=== PATIENT | male | born 1950 | race Caucasian/White ===

== ENCOUNTER 2021-09-30 02:54 | Emergency (ER) | payer MEDICARE ==
[~2021-09-30] VITALS: Ht 165 cm; Wt 55.0 kg
[2021-09-30 03:14] VITALS: BP 216/112
[2021-09-30] MEDS ORDERED: ASPIRIN 325 MG (5 GR) TABLET PO ONE (03:15)
[2021-09-30] MEDS ORDERED: NITROGLYCERIN 0.4 MG SL TABS BTL 25'S SL PRN (03:15)
[2021-09-30 03:26] LABS: BASOPHILS % (AUTO) 1 % (0-10); EOSINOPHILS % (AUTO) 1 % (0-10); HEMATOCRIT 37 % (40-54); HEMOGLOBIN 13.5 g/dL (13.3-17.7); LYMPHOCYTES # (AUTO) 0.4 10^3/uL (1.0-4.0); LYMPHOCYTES % (AUTO) 5 % (12-44); MEAN CORPUSCULAR HEMOGLOBIN 33 pg (25-34); MEAN CORPUSCULAR HGB CONC 37 g/dL (32-36); MEAN CORPUSCULAR VOLUME 89 fL (80-99); MEAN PLATELET VOLUME 9.2 fL (9.0-12.2); MONOCYTES # (AUTO) 1.3 10^3/uL (0.0-1.0); MONOCYTES % (AUTO) 16 % (0-12); NEUTROPHILS # (AUTO) 6.5 10^3/uL (1.8-7.8); NEUTROPHILS % (AUTO) 78 % (42-75); PLATELET COUNT 279 10^3/uL (130-400); WHITE BLOOD COUNT 8.3 10^3/uL (4.3-11.0)
[2021-09-30] MEDS ORDERED: ALPRAZolam 0.25 MG (XANAX) TAB PO ONE (03:30)
--- NOTE | 2021-09-30 03:43 | Diagnostic Imaging Report ---
Indication: Chest pain Portable chest 3:32 AM Heart size and pulmonary vascularity are normal. Lungs are clear. There are no effusions or pneumothoraces. IMPRESSION: Negative chest Dictated by: Dictated on workstation # [id number]
[2021-09-30 03:53] LABS: ATYPICAL LYMPHOCYTES 7 %; BAND NEUTROPHILS 8 %; EOSINOPHILS % (MANUAL) 1 %; LYMPHOCYTES % (MANUAL) 3 %; MONOCYTES % (MANUAL) 2 %; NEUTROPHILS % (MANUAL) 75 %; PLATELET ESTIMATE NORMAL; RBC MORPH NORMAL; REACTIVE LYMPHOCYTES 4 %
[2021-09-30 03:59] LABS: PROTHROMBIN TIME PATIENT 13.9 SEC (12.2-14.7)
[2021-09-30 04:11] LABS: SODIUM 126 MMOL/L (135-145)
[2021-09-30 04:12] LABS: BUN/CREATININE RATIO 20; CARBON DIOXIDE 26 MMOL/L (21-32); CHLORIDE 85 MMOL/L (98-107); CREATININE SERUM 0.92 MG/DL (0.60-1.30); GFR ESTIMATED 89; GLUCOSE 111 MG/DL (70-105); POTASSIUM 3.8 MMOL/L (3.6-5.0)
[2021-09-30 04:13] LABS: ALANINE AMINOTRANSFERASE 10 U/L (0-55); ALKALINE PHOSPHATASE 69 U/L (40-136); BILIRUBIN,TOTAL 0.6 MG/DL (0.1-1.0); CALCIUM 10.2 MG/DL (8.5-10.1); MAGNESIUM 1.3 MG/DL (1.6-2.4); TOTAL PROTEIN 8.1 GM/DL (6.4-8.2)
--- NOTE | 2021-09-30 04:17 | ED Chest Pain ---
General Chief Complaint: General Problems/Pain Stated Complaint: CHEST DISCOMFORT Nursing Triage Note: pt presents with c/o chest tightness, loss of appetite, hot/cold flashes, and pain on his ride side from his abd to his shoulder, as well as increased fatigue. reports symptoms have been intermittent for several days. pt able to ambulate to room. Source: patient Exam Limitations: no limitations History of Present Illness Date Seen by Provider: Sep 30, 2021 Time Seen by Provider: 03:13 Initial Comments This 70-year-old gentleman presents to the emergency room with complaints of chest tightness, loss of appetite, hot/cold flashes, anxiousness, and insomnia for the past couple of days. He reports history of significant hypertensive episodes for which he has pursued cardiology consultation. 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 He received extensive radiation therapy for throat cancer. He takes losartan and clonidine. His last doses were around 1800. He reports taking half doses recently as he feels terrible when he takes a full dose. He has not had any recent cardiac evaluation with stress test or heart cath. He denies any substance abuse. He additionally comments he was started on levothyroxine about a year ago but he has not had his thyroid levels checked since then. He complains of dry mouth. His primary care provider is Michela Friedman at [facility]. Allergies and Home Medications Allergies Coded Allergies: No Known Drug Allergies (Unverified , 09/30/21) Patient Home Medication List Home Medication List Reviewed: Yes Review of Systems Review of Systems Constitutional: see HPI, weight loss EENTM: See HPI Respiratory: No Symptoms Reported Cardiovascular: See HPI Gastrointestinal: No Symptoms Reported Genitourinary: No Symptoms Reported Musculoskeletal: no symptoms reported Skin: no symptoms reported Psychiatric/Neurological: See HPI Endocrine: No Symptoms Reported Hematologic/Lymphatic: No Symptoms Reported Past Zlksset-Ehxptp-Nyhtpp Hx Patient Social History Tobacco Use?: No Substance use?: No Alcohol Use?: No Immunizations Up To Date Influenza Vaccine Up-to-Date: Yes; Up-to-Date Past Medical History Surgery/Hospitalization HX: gallbladder, lymphnodeectomy Surgeries: Yes Gallbladder Respiratory: No Cardiac: Yes Hypertension, Peripheral Vascular (Carotid disease due to radiation exposure from cancer treatment) Reproductive Disorders: No Genitourinary: No Gastrointestinal: Yes Musculoskeletal: No Endocrine: Yes Hypothyroidsim, Diabetes, Non-Insulin dep HEENT: Yes Dysphagia (From radiation cancer treatment) Cancer: Yes (Throat) Psychosocial: No Integumentary: No Physical Exam Vital Signs Vital Signs - First Documented 09/30/21 03:14 Temp 37.3 Pulse 114 Resp 24 B/P (MAP) 216/112 (146) Pulse Ox 97 O2 Delivery Room Air Capillary Refill : Height, Weight, BMI Height: '" Weight: lbs. oz. kg; 20.00 BMI Method: General Appearance: WD/WN, Moderate Distress HEENT: PERRL/EOMI, Normal ENT Inspection, Other (Dry oropharynx) Neck: Normal Inspection; No JVD Respiratory: Chest Non Tender, Lungs Clear, Normal Breath Sounds, No Accessory Muscle Use Cardiovascular: No Edema, No Murmur, Tachycardia Gastrointestinal: Non Tender, Soft Extremity: Normal Inspection, No Pedal Edema Neurologic/Psychiatric: Alert, Oriented x3, No Motor/Sensory Deficits, gravel weigher II- XII Norm as Tested, Other (Anxious) Skin: Normal Color, Warm/Dry Progress/Results/Core Measures Results/Orders Lab Results Laboratory Tests Test 09/30/21 03:13 09/30/21 05:28 Range/Units White Blood Count 8.3 4.3-11.0 10^3/uL Red Blood Count 4.14 L 4.30-5.52 10^6/uL Hemoglobin 13.5 13.3-17.7 g/dL Hematocrit 37 L 40-54 % Mean Corpuscular Volume 89 80-99 fL Mean Corpuscular Hemoglobin 33 25-34 pg Mean Corpuscular Hemoglobin Concent 37 H 32-36 g/dL Red Cell Distribution Width 11.8 10.0-14.5 % Platelet Count 279 130-400 10^3/uL Mean Platelet Volume 9.2 9.0-12.2 fL Immature Granulocyte % (Auto) 0 % Neutrophils (%) (Auto) 78 H 42-75 % Lymphocytes (%) (Auto) 5 L 12-44 % Monocytes (%) (Auto) 16 H 0-12 % Eosinophils (%) (Auto) 1 0-10 % Basophils (%) (Auto) 1 0-10 % Neutrophils # (Auto) 6.5 1.8-7.8 10^3/uL Lymphocytes # (Auto) 0.4 L 1.0-4.0 10^3/uL Monocytes # (Auto) 1.3 H 0.0-1.0 10^3/uL Eosinophils # (Auto) 0.0 0.0-0.3 10^3/uL Basophils # (Auto) 0.0 0.0-0.1 10^3/uL Immature Granulocyte # (Auto) 0.0 0.0-0.1 10^3/uL Neutrophils % (Manual) 75 % Lymphocytes % (Manual) 3 % Monocytes % (Manual) 2 % Eosinophils % (Manual) 1 % Band Neutrophils 8 % Atypical Lymphocytes 7 % Reactive Lymphocytes 4 % Platelet Estimate NORMAL Blood Morphology Comment NORMAL Prothrombin Time 13.9 12.2-14.7 SEC INR Comment 1.0 0.8-1.4 Activated Partial Thromboplast Time 33 24-35 SEC Sodium Level 126 L 135-145 MMOL/L Potassium Level 3.8 3.6-5.0 MMOL/L Chloride Level 85 L 98-107 MMOL/L Carbon Dioxide Level 26 21-32 MMOL/L Anion Gap 15 H 5-14 MMOL/L Blood Urea Nitrogen 18 7-18 MG/DL Creatinine 0.92 0.60-1.30 MG/DL Estimat Glomerular Filtration Rate 89 BUN/Creatinine Ratio 20 Glucose Level 111 H 70-105 MG/DL Calcium Level 10.2 H 8.5-10.1 MG/DL Corrected Calcium 8.5-10.1 MG/DL Magnesium Level 1.3 L 1.6-2.4 MG/DL Total Bilirubin 0.6 0.1-1.0 MG/DL Aspartate Amino Transf (AST/SGOT) 19 5-34 U/L Alanine Aminotransferase (ALT/SGPT) 10 0-55 U/L Alkaline Phosphatase 69 40-136 U/L Myoglobin 57.1 10.0-92.0 NG/ML Troponin I < 0.30 < 0.30 <0.30 NG/ML C-Reactive Protein 4.52 H <0.50 MG/DL Pro-B-Type Natriuretic Peptide 444.0 H <75.0 PG/ML Total Protein 8.1 6.4-8.2 GM/DL Albumin 5.0 H 3.2-4.5 GM/DL My Orders Orders - AVINASH HARLEY MD Cbc With Automated Diff (09/30/21 03:13) Magnesium (09/30/21 03:13) Chest 1 View Ap/Pa Only (09/30/21 03:13) Ekg Tracing (09/30/21 03:13) Comprehensive Metabolic Panel (09/30/21 03:13) Myoglobin Serum (09/30/21 03:13) Protime With Inr (09/30/21 03:13) Partial Thromboplastin Time (09/30/21 03:13) O2 (09/30/21 03:13) Monitor-Rhythm Ecg Trace Only (09/30/21 03:13) Lipid Panel (10/01/21 06:00) Ed Iv/Invasive Line Start (09/30/21 03:13) Troponin I Fs (09/30/21 03:13) Nitroglycerin 0.4 Mg Btl 25's (Nitrostat (09/30/21 03:15) Aspirin Tablet (Aspirin Tablet) (09/30/21 03:15) Probnp Fs (09/30/21 03:16) Thyroid Stimulating Hormone (09/30/21 03:16) Free T4 (Free Thyroxine) (09/30/21 03:16) Alprazolam Tablet (Xanax Tablet) (09/30/21 03:30) Crp Fs (09/30/21 03:35) Manual Differential (09/30/21 03:13) Ns Iv 1000 Ml (Sodium Chloride 0.9%) (09/30/21 04:30) Magnesium 1 Gm/100 Ml Ivpb (Magnesium Leon (09/30/21 04:30) Magnesium 1 Gm/100 Ml Ivpb (Magnesium Leon (09/30/21 04:21) Troponin I Fs (09/30/21 05:15) Magnesium Oxide Tablet (Mag Ox Tablet) (09/30/21 05:30) Medications Given in ED Current Medications Medications Dose Ordered Sig/Moy Route Start Time Stop Time Status Last Admin Dose Admin Alprazolam 0.25 mg ONCE ONCE PO 09/30/21 03:30 09/30/21 03:31 DC 09/30/21 03:27 0.25 MG Aspirin 325 mg ONCE ONCE PO 09/30/21 03:15 09/30/21 03:16 DC 09/30/21 03:27 325 MG Magnesium Oxide 400 mg ONCE ONCE PO 09/30/21 05:30 09/30/21 05:31 DC 09/30/21 05:40 400 MG Magnesium Sulfate/ Dextrose 100 ml @ 100 mls/hr ONCE ONCE IV 09/30/21 04:30 09/30/21 05:29 DC 09/30/21 04:23 100 MLS/HR Nitroglycerin 0.4 mg UD PRN SL 09/30/21 03:15 09/30/21 03:27 0.4 MG Sodium Chloride 1,000 ml @ 0 mls/hr Q0M ONCE IV 09/30/21 04:30 09/30/21 04:31 DC 09/30/21 04:23 0 MLS/HR Vital Signs/I&O 09/30/21 09/30/21 09/30/21 09/30/21 03:14 03:20 03:45 04:09 Temp 37.3 Pulse 114 106 100 Resp 24 18 B/P (MAP) 216/112 (146) 104/63 106/65 Pulse Ox 97 98 93 O2 Delivery Room Air Room Air Room Air 09/30/21 09/30/21 04:48 05:36 Pulse 93 87 Resp 18 B/P (MAP) 136/75 126/67 Pulse Ox 96 96 O2 Delivery Room Air Blood Pressure Mean: 79 Progress Progress Note #1: Time: 04:31 Progress Note Patient received nitroglycerin x1, Xanax 0.25 mg orally, and aspirin. He abruptly dropped his systolic blood pressure to 80 after the nitroglycerin. Progress Note #2: Time: 06:38 Progress Note Repeat troponin was negative. Blood pressure was controlled. Patient was not experiencing any chest pain. See discharge instructions for further discussion. Initial ECG Impression Date: Sep 30, 2021 Initial ECG Impression Time: 03:14 Initial ECG Rate: 110 Initial ECG Rhythm: S.Tach Comment Sinus tachycardia with no ST elevation or depression. No abnormal intervals or axis deviation. Diagnostic Imaging Diagonstic Imaging: Xray Plain Films/CT/US/NM/MRI: chest Comments Chest x-ray viewed by me and report reviewed. See report below: NAME: BAUTISTA RIVAS [employer] REC#: [id number] PT STATUS: REG ER : 1950 PHYSICIAN: AVINASH HARLEY MD ADMIT DATE: 09/30/21/ER FS Signed Date of Exam:09/30/21 CHEST 1 VIEW AP/PA ONLY Indication: Chest pain Portable chest 3:32 AM Heart size and pulmonary vascularity are normal. Lungs are clear. There are no effusions or pneumothoraces. IMPRESSION: Negative chest Dictated by: Dictated on workstation # [id number] Dict: 09/30/21340 Trans: 09/30/21340 TCB [id number] Interpreted by: NITIN CEJA MD Electronically signed by: NITIN CEJA MD 09/30/21340 Departure Impression Primary Impression: Hypertensive urgency Additional Impressions: Chest pain Qualified Codes: R07.9 - Chest pain, unspecified Anxiety Hypomagnesemia Hyponatremia Thyroid dysfunction Unintended weight loss Disposition: HOME, SELF-CARE Condition: Improved Departure-Patient Inst. Referrals: NO,LOCAL PHYSICIAN (PCP/Family) Primary Care Physician Patient Instructions: Chest Pain Add. Discharge Instructions: Follow-up with your primary care provider soon as possible. They should follow- up on your pending thyroid labs to ensure your thyroid is regulated properly. If your unintended weight loss is not explained by thyroid dysfunction or any other identifiable cause, this should be explored further. This may include revisiting your oncologist for cancer surveillance. Try to eat a well-balanced diet. If necessary, you may use supplements such as Ensure to help you achieve proper nutrition. Call with questions or concerns, and return to the ER if you have worsening symptoms. All discharge instructions reviewed with patient and/or family. Voiced understanding. Copy Copies To 1: [facility]/AVINASH WILL MD Sep 30, 2021 04:17
[2021-09-30] MEDS ORDERED: MAGNESIUM 1 GM/100 ML IVPB 100 ML IV ONE ×2 (04:21→04:30)
[2021-09-30] MEDS ORDERED: NS IV 1000 ML 1,000 ML IV ONE (04:30)
[2021-09-30] MEDS ORDERED: MAGNESIUM OXIDE (MAG-OX)400 MG TAB PO ONE (05:30)
[2021-09-30 15:26] LABS: FREE T4 (FREE THYROXINE) 1.29 NG/DL (0.70-1.48)
== END 2021-09-30 06:45 | disposition home or self-care (01) ==
LOC: ER FS 03:02
DX: I16.0 Hypertensive urgency (principal); F41.9 Anxiety disorder, unspecified; E87.1 Hypo-osmolality and hyponatremia; E83.42 Hypomagnesemia; E07.9 Disorder of thyroid, unspecified; R63.4 Abnormal weight loss; R00.0 Tachycardia, unspecified; Z79.899 Other long term (current) drug therapy
CPT/HCPCS: 36415; 71045; 80053; 83735; 83874; 83880; 84439; 84443; 84484; 85007; 85027; 85610; 85730; 86141; 93005; 93041

== ENCOUNTER 2021-10-18 11:01 | Emergency (ER) | payer MEDICARE ==
[~2021-10-18] VITALS: Ht 167.7 cm; Wt 54.4 kg
--- NOTE | 2021-10-18 11:26 | Diagnostic Imaging Report ---
EXAMINATION: Chest 1 view HISTORY: Chest pain COMPARISON: 09/30/2021 FINDINGS: Heart size and pulmonary vasculature are normal. The lungs are clear without consolidation, pleural effusion, or pneumothorax. Degenerative changes of the thoracic spine. Osseous structures are otherwise intact. IMPRESSION: 1. No acute radiographic abnormality in the chest. Dictated by: Dictated on workstation # [id number]
[2021-10-18] MEDS ORDERED: ALPRAZolam 0.25 MG (XANAX) TAB PO ONE (11:45)
[2021-10-18 11:58] LABS: CARBON DIOXIDE 28 MMOL/L (21-32)
[2021-10-18 11:59] LABS: ALANINE AMINOTRANSFERASE 18 U/L (0-55); ALBUMIN 4.8 GM/DL (3.2-4.5); ALKALINE PHOSPHATASE 78 U/L (40-136); BILIRUBIN,TOTAL 0.7 MG/DL (0.1-1.0); BUN/CREATININE RATIO 14; CALCIUM 9.8 MG/DL (8.5-10.1); CREATININE SERUM 1.02 MG/DL (0.60-1.30); GFR ESTIMATED 79; GLUCOSE 193 MG/DL (70-105); TOTAL PROTEIN 8.2 GM/DL (6.4-8.2)
[2021-10-18 12:30] LABS: CHLORIDE 88 MMOL/L (98-107); SODIUM 130 MMOL/L (135-145)
[2021-10-18] MEDS ORDERED: NS 100 ML (IVPB) BAG IV ONE (12:45)
[2021-10-18] MEDS ORDERED: HOLD METFORMIN - RECEIVED CONTRAST 20 ML VIAL IV SCH (12:45)
[2021-10-18] MEDS ORDERED: FUROSEMIDE 40 MG/4 ML INJ (LASIX) IVP ONE (12:45)
[2021-10-18] MEDS ORDERED: IOHEXOL 350 MG/ML 100 ML (OMNIPAQUE 350) VIAL IV ONE (12:45)
--- NOTE | 2021-10-18 13:25 | ED Cardiac General ---
History of Present Illness General Chief Complaint: Chest Pain Stated Complaint: SOB; CHEST PAIN Nursing Triage Note: PT AMBULATE TO ROOM FS01 WITH C/O CHEST PRESSURE SINCE 10/03/21. PT REPORTS BEING SEEN IN THIS ED AND DISCHARGED ON 10/03/21 FOR SAME C/O. PT REPORTS HIS PCP CANNOT GET HIM IN UNTIL THE OF NEXT MONTH. Source: patient Exam Limitations: no limitations History of Present Illness Date Seen by Provider: Oct 18, 2021 Time Seen by Provider: 11:15 Initial Comments Patient is a 70-year-old male who is approximately 2 weeks post COVID-positive who presents with intermittent chest tightness with shortness of breath over the past month with increased fatigue.. Patient denies chest pain or exertional chest tightness but states he noticed symptoms more during the nighttime. He has been evaluated in this emergency department for the same 2 weeks ago and is awaiting follow-up appointment with his PCP. Reports decreased appetite with 40 pound weight loss in the past 12 months and anxiety. Patient denies fever, chills, nausea vomiting or sweats. He reports nonproductive cough. Reports abdominal pain with some constipation. Generalized fatigue which he attributes to COVID. Denies leg pain or swelling. No other acute symptoms or complaints. Timing/Duration: other Severity: mild Location: other Activities at Onset: other Prior CP/Workup: other Modifying Factors: improves with other ASA po SIGN HANGER: No Associated Systoms: Other Allergies and Home Medications Allergies Coded Allergies: No Known Drug Allergies (Unverified , 09/30/21) Patient Home Medication List Home Medication List Reviewed: Yes Review of Systems Review of Systems Constitutional: see HPI EENTM: See HPI Respiratory: See HPI Cardiovascular: See HPI Gastrointestinal: See HPI Genitourinary: See HPI Musculoskeletal: see HPI Skin: see HPI Psychiatric/Neurological: See HPI Endocrine: See HPI Hematologic/Lymphatic: See HPI All Other Systems Reviewed Negative Unless Noted: No Past Whvzajt-Accpln-Wwfurs Hx Patient Social History Tobacco Use?: No Smoking Status: Never a Smoker Smokeless Tobacco Frequency: Never a User Use of E-Cig and/or Vaping dev: No Use of E-Cig and/or Vaping [place]: Never a User Substance use?: No Alcohol Use?: Yes Alcohol Frequency: Rarely Pt feels they are or have been: No Immunizations Up To Date First/Initial COVID19 Vaccinat: X Second COVID19 Vaccination Micah: X COVID19 Vaccine [id number] Armor Crewman: JARRELL Past Medical History Surgery/Hospitalization HX: gallbladder, lymphnodeectomy Surgeries: Yes Gallbladder Respiratory: No Cardiac: Yes Hypertension, Peripheral Vascular Reproductive Disorders: No Genitourinary: No Gastrointestinal: Yes Musculoskeletal: No Endocrine: Yes Hypothyroidsim, Diabetes, Non-Insulin dep HEENT: Yes Dysphagia Cancer: Yes (Throat) Psychosocial: No Integumentary: No Physical Exam Vital Signs Vital Signs - First Documented 10/18/21 11:02 Temp 36.4 Pulse 97 Resp 15 B/P (MAP) 238/105 (149) O2 Delivery Room Air Capillary Refill : Less Than 3 Seconds Height, Weight, BMI Height: '" Weight: lbs. oz. kg; 19.00 BMI Method: General Appearance: No Apparent Distress, WD/WN HEENT: PERRL/EOMI, Normal ENT Inspection, Pharynx Normal, Moist Mucous Membranes Neck: Full Range of Motion, Non Tender Respiratory: Decreased Breath Sounds Cardiovascular: Regular Rate, Rhythm, No Murmur, Normal Peripheral Pulses Gastrointestinal: Normal Bowel Sounds, Non Tender, Soft Neurologic/Psychiatric: Alert, Oriented x3, Normal Mood/Affect, client service supervisor II-XII Norm as Tested Skin: Normal Color Focused Exam Sepsis Stage: Ruled Out Progress/Results/Core Measures Results/Orders Lab Results Laboratory Tests Test 10/18/21 11:10 Range/Units White Blood Count 9.4 4.3-11.0 10^3/uL Red Blood Count 4.60 4.30-5.52 10^6/uL Hemoglobin 14.7 13.3-17.7 g/dL Hematocrit 41 40-54 % Mean Corpuscular Volume 90 80-99 fL Mean Corpuscular Hemoglobin 32 25-34 pg Mean Corpuscular Hemoglobin Concent 36 32-36 g/dL Red Cell Distribution Width 12.0 10.0-14.5 % Platelet Count 427 H 130-400 10^3/uL Mean Platelet Volume 9.2 9.0-12.2 fL Immature Granulocyte % (Auto) 0 % Neutrophils (%) (Auto) 86 H 42-75 % Lymphocytes (%) (Auto) 5 L 12-44 % Monocytes (%) (Auto) 7 0-12 % Eosinophils (%) (Auto) 1 0-10 % Basophils (%) (Auto) 1 0-10 % Neutrophils # (Auto) 8.1 H 1.8-7.8 10^3/uL Lymphocytes # (Auto) 0.5 L 1.0-4.0 10^3/uL Monocytes # (Auto) 0.6 0.0-1.0 10^3/uL Eosinophils # (Auto) 0.1 0.0-0.3 10^3/uL Basophils # (Auto) 0.1 0.0-0.1 10^3/uL Immature Granulocyte # (Auto) 0.0 0.0-0.1 10^3/uL Neutrophils % (Manual) 74 % Lymphocytes % (Manual) 5 % Monocytes % (Manual) 10 % Eosinophils % (Manual) 0 % Basophils % (Manual) 1 % Band Neutrophils 8 % Atypical Lymphocytes 2 % Platelet Estimate INCREASED Blood Morphology Comment NORMAL Sodium Level 130 L 135-145 MMOL/L Potassium Level 4.0 3.6-5.0 MMOL/L Chloride Level 88 L 98-107 MMOL/L Carbon Dioxide Level 28 21-32 MMOL/L Anion Gap 14 5-14 MMOL/L Blood Urea Nitrogen 14 7-18 MG/DL Creatinine 1.02 0.60-1.30 MG/DL Estimat Glomerular Filtration Rate 79 BUN/Creatinine Ratio 14 Glucose Level 193 H 70-105 MG/DL Calcium Level 9.8 8.5-10.1 MG/DL Corrected Calcium 8.5-10.1 MG/DL Total Bilirubin 0.7 0.1-1.0 MG/DL Aspartate Amino Transf (AST/SGOT) 18 5-34 U/L Alanine Aminotransferase (ALT/SGPT) 18 0-55 U/L Alkaline Phosphatase 78 40-136 U/L Troponin I < 0.30 <0.30 NG/ML Pro-B-Type Natriuretic Peptide 480.5 H <125.0 PG/ML Total Protein 8.2 6.4-8.2 GM/DL Albumin 4.8 H 3.2-4.5 GM/DL My Orders Orders - DANIELA REBOLLAR DO Chest 1 View Ap/Pa Only (10/18/21 11:13) Troponin I Fs (10/18/21 11:13) Comprehensive Metabolic Panel (10/18/21 11:13) Probnp Fs (10/18/21 11:13) Ekg Tracing (10/18/21 11:13) Alprazolam Tablet (Xanax Tablet) (10/18/21 11:45) Furosemide Injection (Lasix Injection) (10/18/21 12:45) Ct [place] Chest/Noang Abd-Pelv W (10/18/21 12:32) Iohexol Injection (Omnipaque 350 Mg/Ml 1 (10/18/21 12:45) Received Contrast (Hold Metformin- Contr (10/18/21 12:45) Ns (Ivpb) (Sodium Chloride 0.9% Ivpb Bag (10/18/21 12:45) Cbc With Automated Diff (10/18/21 13:27) Manual Differential (10/18/21 11:10) Medications Given in ED Current Medications Medications Dose Ordered Sig/Moy Route Start Time Stop Time Status Last Admin Dose Admin Alprazolam 0.25 mg ONCE ONCE PO 10/18/21 11:45 10/18/21 11:46 DC 10/18/21 11:44 0.25 MG Furosemide 20 mg ONCE ONCE IVP 10/18/21 12:45 10/18/21 12:46 DC 10/18/21 13:50 20 MG Vital Signs/I&O 10/18/21 11:02 Temp 36.4 Pulse 97 Resp 15 B/P (MAP) 238/105 (149) O2 Delivery Room Air Blood Pressure Mean: 149 Departure Communication (Admissions) CT chest: Groundglass appearing and lung waggoner, no PE, CT abdomen pelvis: No acute process per radiology report Patient with multiple subacute and chronic symptoms and post in COVID setting. Patient sodium 138 likely contributing to fatigue. I will hold the patient's losartan and have him follow-up with his PCP next week for reexamination. Patient does have clonidine which he can use on a daily basis on a as needed. CT findings are consistent with COVID without discrete lobar infiltrate. Will place on Z-Jose Angel for atypical pneumonia coverage. He does have an albuterol inhaler to use. Patient does have 40 pound weight loss over the past 3 to 4 months. He is following up with his primary care doctor who can address this issue and his ongoing anxiety. Patient does not currently meet any criteria for acute hospital. He will be discharged home with instructions to continue therapeutic and supportive care with PCP follow-up. Return precautions reviewed. Patient verbalizes understanding agreement discharge instructions prior to departure. Impression Primary Impression: Dyspnea Additional Impressions: Chest tightness Fatigue COVID Hyponatremia Disposition: HOME, SELF-CARE Condition: Stable Departure-Patient Inst. Decision time for Depature: 14:17 Referrals: JAMES BAIRD MD (PCP) Primary Care Physician Patient Instructions: COVID-19 Overview Add. Discharge Instructions: You were evaluated in the emergency department for chest tightness, shortness of breath fatigue and abdominal discomfort. Lab and imaging studies were performed. There is residual evidence of COVID on your CT chest. You will need to hold metformin for the next 2 days due to the use of CT contrast. Please fill antibiotics and take as directed and continue home albuterol use. You were found to have a low sodium level of 130. He is discontinue losartan as this may be contributing to this and follow-up with your PCP next week for repeat lab testing and further blood pressure management. You may use daily clonidine to address blood pressure in the meantime. If you develop any new or worsening symptoms, return to the emergency department. All discharge instructions reviewed with patient and/or family. Voiced understanding. Scripts Azithromycin (Zithromax) 250 Mg Tablet 250 MG PO UD, #6 TAB TAKE 2 TABLETS TODAY, THEN TAKE 1 TABLET DAILY FOR 4 MORE DAYS Prov: DANIELA REBOLLAR DO 10/18/21 DANIELA REBOLLAR DO Oct 18, 2021 13:25
[2021-10-18 13:35] LABS: BASOPHILS # (AUTO) 0.1 10^3/uL (0.0-0.1); BASOPHILS % (AUTO) 1 % (0-10); EOSINOPHILS # (AUTO) 0.1 10^3/uL (0.0-0.3); EOSINOPHILS % (AUTO) 1 % (0-10); HEMATOCRIT 41 % (40-54); HEMOGLOBIN 14.7 g/dL (13.3-17.7); LYMPHOCYTES # (AUTO) 0.5 10^3/uL (1.0-4.0); LYMPHOCYTES % (AUTO) 5 % (12-44); MEAN CORPUSCULAR HEMOGLOBIN 32 pg (25-34); MEAN CORPUSCULAR HGB CONC 36 g/dL (32-36); MEAN CORPUSCULAR VOLUME 90 fL (80-99); MEAN PLATELET VOLUME 9.2 fL (9.0-12.2); MONOCYTES # (AUTO) 0.6 10^3/uL (0.0-1.0); MONOCYTES % (AUTO) 7 % (0-12); NEUTROPHILS # (AUTO) 8.1 10^3/uL (1.8-7.8); NEUTROPHILS % (AUTO) 86 % (42-75); PLATELET COUNT 427 10^3/uL (130-400); WHITE BLOOD COUNT 9.4 10^3/uL (4.3-11.0)
--- NOTE | 2021-10-18 13:37 | Diagnostic Imaging Report ---
EXAMINATION: CT angiography of the chest; CT of the abdomen and pelvis. TECHNIQUE: Contrast-enhanced thin section helical images were obtained through the chest, abdomen and pelvis with intravenous contrast timed for the optimal opacification of the arterial structures of the chest per CTA protocol. Post-processing, reconstructions, and interpretation of angiographic images of the vessels were performed. 3D MIP reconstructions were performed and reviewed. All CT scans use one or more of the following dose optimizing techniques: Automated exposure control, MA and/or KvP adjustment based on a patient size and exam type, or iterative reconstruction. HISTORY: CP, concern for PE. COMPARISON: None available. FINDINGS: Vascular: No filling defects within the pulmonary arteries. Calcification of the aorta and coronary vessels. Thyroid: The thyroid is normal. Mediastinum: Heart size is normal without significant pericardial effusion. No suspicious lymphadenopathy. Lungs and airways: The lungs are clear without consolidation, pleural effusion, or pneumothorax. There is scarring within the lung apices. Patchy ground-glass opacities are seen within the lungs. No pleural effusion or pneumothorax. Mucus plugging within the trachea. Solid organs: The liver is normal without focal lesion. The gallbladder is surgically absent. There is no biliary ductal dilation. Pancreas is normal. Spleen is normal. Adrenal glands are normal. The kidneys are normal without hydronephrosis. Bowel: The stomach and small bowel are normal without obstruction. Colon is unremarkable. No findings of acute appendicitis. Peritoneum: There is no intraperitoneal free fluid or free air. No suspicious lymphadenopathy. Vasculature: Calcification of the aorta without aneurysm. Musculoskeletal: Degenerative changes of the spine without suspicious osseous lesion or compression fracture. Pelvis: The prostate gland is normal. The urinary bladder is normal. IMPRESSION: 1. No findings of pulmonary embolus. 2. Patchy ground-glass opacities throughout the lungs, which can be seen with pulmonary edema or atypical infection. 3. No acute abnormality in the abdomen or pelvis. Dictated by: Dictated on workstation # [id number]
[2021-10-18 13:56] LABS: BAND NEUTROPHILS 8 %; LYMPHOCYTES % (MANUAL) 5 %; MONOCYTES % (MANUAL) 10 %; NEUTROPHILS % (MANUAL) 74 %
[2021-10-18 13:57] LABS: ATYPICAL LYMPHOCYTES 2 %; BASOPHILS % (MANUAL) 1 %; EOSINOPHILS % (MANUAL) 0 %; PLATELET ESTIMATE INCREASED; RBC MORPH NORMAL
[2021-10-18] MEDS ORDERED: AZIT250T PO (14:21)
[2021-10-18 14:27] VITALS: BP 149/85
== END 2021-10-18 14:27 | disposition home or self-care (01) ==
LOC: EDUNIT# 11:01 → ER FS 11:02
DX: U07.1 COVID-19 (principal); E87.1 Hypo-osmolality and hyponatremia; Z73.0 Burn-out
CPT/HCPCS: 36415; 71045; 71275; 74177; 80053; 83880; 84484; 85007; 85027; 93005; Q9967

== ENCOUNTER → 2022-01-17 | Outpatient (CLI) | payer MEDICARE ==
[~2022-01-17] MED LIST: AZIT250T PO
== END ==
LOC: CARDFS 13:02
PROVIDERS: ATTEND Internal Medicine Cardiovascular Disease
DX: I34.0 Nonrheumatic mitral (valve) insufficiency (principal)
CPT/HCPCS: 93306

== ENCOUNTER 2022-01-18 06:33 | Outpatient (CLI) | payer MEDICARE ==
[~2022-01-18] VITALS: Ht 167.6 cm; Wt 51.7 kg
[2022-01-23] MEDS ORDERED: OMEP40CA6 PO (13:21)
[2022-01-23] MEDS ORDERED: LOSA25TA41 PO (13:21)
[2022-01-23] MEDS ORDERED: CYAN1TAB18 PO (13:21)
[2022-01-23] MEDS ORDERED: LYSI500T10 PO (13:21)
[2022-01-23] MEDS ORDERED: ROSU20TA32 PO (13:21)
[2022-01-23] MEDS ORDERED: CLN.1T PO (13:21)
[2022-01-23] MEDS ORDERED: METF-397 PO (13:21)
== END 2022-01-23 13:29 | disposition home or self-care (01) ==
LOC: PREOP 06:33
PROVIDERS: ATTEND Surgery
DX: Z01.818 Encounter for other preprocedural examination (principal)

== ENCOUNTER 2022-01-26 07:12 | Day surgery (SDC) | payer MEDICARE ==
[2022-01-26] VITALS (7 sets, daily range): BP systolic 92–227; BP diastolic 54–133
[~2022-01-26] VITALS: Ht 167.6 cm; Wt 51.7 kg
[~2022-01-26 07:12] MED LIST changes: +CLN.1T PO; +CYAN1TAB18 PO; +LOSA25TA41 PO; +LYSI500T10 PO; +METF-397 PO; +OMEP40CA6 PO; +ROSU20TA32 PO
[2022-01-26] MEDS ORDERED: LACTATED RINGERS 1,000 ML IV STA (07:15)
[2022-01-26] MEDS ORDERED: HURRICAINE EXT TUBE (BENZOCAINE) XX PRN (07:15)
--- NOTE | 2022-01-26 07:57 | Progress Note-Pre Operative ---
Pre-Operative Progress Note Date of Available H&P: Jan 16, 2022 Date H&P Reviewed: Jan 26, 2022 Time H&P Reviewed: 07:57 History & Physical: H&P Reviewed, Patient Examed, No changes noted Pre-Operative Diagnosis: dysphagia, hx tongue ca ABELARDO MRAIE DO Jan 26, 2022 07:57
--- NOTE | 2022-01-26 08:43 | Progress Note-Post Operative ---
Post-Operative Progess Note Surgeon (s)/Assembling Fabricator (s) Surgeon ABELARDO MARIE DO Assembling Fabricator: NA Pre-Operative Diagnosis dysphagia, hx tongue ca Post-Operative Diagnosis dysphagia Procedure & Operative Findings Date of Procedure 01/26/22 Procedure Performed/Findings EGD with pediatric scope due to rigidity of esophagus Anesthesia Type per family practice doctor Estimated Blood Loss Estimated blood loss (mL): None Specimens/Packing Specimens Removed No biopsies taken ABELARDO MARIE DO Jan 26, 2022 08:43
--- NOTE | 2022-01-26 08:45 | Discharge Inst-Simple/Standard ---
Discharge Inst-Standard Reconcile Patient Problems Problems Reviewed?: Yes Patient Instructions/Follow Up Plan of Care/Instructions/FU: f/u with Dr. Nelson in 2 weeks Activity as Tolerated: Yes Discharge Diet: Regular Diet ABELARDO NELSON DO Jan 26, 2022 08:45
--- NOTE | 2022-01-26 08:48 | Anesthesia-General Post-Op ---
MAC Patient Condition Mental Status/LOC: Same as Preop Cardiovascular: Satisfactory Nausea/Vomiting: Absent Respiratory: Satisfactory Pain: Controlled Complications: Absent Post Op Complications Complications None Follow Up Care/Instructions Patient Instructions None needed. Anesthesiology Discharge Order Discharge Order Patient is doing well, no complaints, stable vital signs, no apparent adverse anesthesia problems. No complications reported per nursing. RASTA RAYMUNDO CRNA Jan 26, 2022 08:48
--- NOTE | 2022-01-27 03:44 | OPERATIVE REPORT ---
DATE OF SERVICE: 01/26/2022 PREOPERATIVE DIAGNOSES: Dysphagia, history of tongue cancer. POSTOPERATIVE DIAGNOSES: Dysphagia, history of tongue cancer. PROCEDURE: EGD. SURGEON: Abelardo Nelson DO. ANESTHESIA: Per HEALTH PROMOTION EDUCATOR. ESTIMATED BLOOD LOSS: Scant. COMPLICATIONS: None. INDICATIONS: The patient is a 71-year-old male with history of tongue cancer. He underwent chemoradiation. He has been having dysphagia symptoms as well. He understands risks and benefits of procedure and wishes to proceed. Consent was signed in the chart. DESCRIPTION OF PROCEDURE: The patient was taken to the endoscopy suite, placed in left lateral recumbent position. Timeout was performed. Gastroscope was inserted in the mouth, down to the esophagus, but tissue is fairly rigid and small submucosal tear was created due to the rigidity and of the oropharynx. We decided to switch to a pediatric scope, which we were able to place in the mouth and inserted down the esophagus without any difficulty. It was placed down into the esophagus, stomach and into the duodenum without difficulty. There were no polyps, masses or ulcerations within the duodenum. Scope was slowly retracted back to stomach where it was further insufflated. No polyps, masses or ulcerations. Scope was retroflexed noting no other pathology. Scope was returned to its normal position, slowly withdrawn to the distal esophagus all the way out, noting no other pathology. RECOMMENDATIONS: I feel that his dysphagia symptoms are likely from radiation. Would get an esophagram to further evaluate. Would also have evaluation with speech therapy. Further recommendations pending those results. Job ID: [id number] DocumentID: [id number] Dictated Date: 01/26/2022 23:54:11 Sourcing Engineer Date: 01/27/2022 03:43:43 Dictated By: ABELARDO NELSON DO
== END 2022-01-26 09:30 | disposition home or self-care (01) ==
LOC: SDC 07:12
PROVIDERS: ATTEND Surgery
DX: R13.10 Dysphagia, unspecified (principal); Z85.810 Personal history of malignant neoplasm of tongue; Z92.21 Personal history of antineoplastic chemotherapy; Z87.891 Personal history of nicotine dependence
CPT/HCPCS: 82947

== ENCOUNTER → 2022-02-02 | Outpatient (CLI) | payer MEDICARE ==
[~2022-02-02] VITALS: Ht 167 cm; Wt 52.0 kg
[~2022-02-02] MED LIST changes: +REGADENOSON 0.4 MG/5 ML SYR (LEXISCAN) IV ONE
[2022-02-02] MEDS: CATHETER FLUSH 10 ML SYR IVP PRN ×2 (12:17→12:18)
[2022-02-02 12:43] VITALS: BP 266/129
--- NOTE | 2022-02-02 17:10 | NUCLEAR STRESS TEST ---
REGADENOSON NUCLEAR STRESS Date of procedure: 02/02/2022. Primary care provider: Michela Friedman MD Admitting physician: Reji Chang Jr., MD. INDICATION: Abnormal electrocardiogram. BASELINE ELECTROCARDIOGRAM: Sinus rhythm with occasional premature ventricular complexes and prominent voltages. STRESS TEST PROCEDURE: The patient was administered 0.4 mg of intravenous Regadenoson. The resting heart rate was 89 bpm and the peak heart rate was 93 bpm. The resting blood pressure was 166/129 mmHg and the minimum blood pressure was 134/69 mmHg. This represents a normal heart rate and a normal blood press ure response to Regadenoson with resting hypertension. The test was stopped due to the protocol. There was no chest discomfort during the test. There were isolated premature ventricular complexes throughout the test. There were no significant stress induced electrocardiogram changes. NUCLEAR PROCEDURE: The patient was administered 9.5 mCi of intravenous technetium 99m Tetrofosmin at rest for the rest images. The patient was subsequently administered 30.4 mCi of intravenous technetium 99m Tetrofosmin at peak stress for the stress images. Following an appropriate wait after each injection, imaging was obtained. The images were subsequently processed and reformatted in the usual views. Gated imaging was obtained. The image quality was adequate with a mild degree of gastrointestinal attenuation artifact. CT attenuation correction was used as a adjunct to standard imaging. Both the corrected and uncorrected images were reviewed for interpretation. NUCLEAR RESULTS: There was normal myocardial perfusion in all segments without evidence of infarction or ischemia. There was normal left ventricular chamber size with an end-diastolic volume of 56 mL and an end-systolic volume of 23 mL. There was no evidence of transient ischemic dilatation. The TID ratio was 1.17. There was normal wall motion in all segments with a calculated ejection fraction of 60%. IMPRESSION: 1. Normal heart rate and blood pressure response to regadenoson with resting hypertension. 2. There was no chest discomfort or electrocardiogram changes during the test. 3. There were isolated premature ventricular complexes throughout the test. 4. There was normal myocardial perfusion in all segments without evidence of infarction or ischemia. 5. There was normal wall motion in all segments with a calculated ejection fraction of 60%. Certain portions of this document may have been dictated utilizing voice recognition technology. Inherent to this technology, typographical and grammatical errors may exist. As much as I am diligent to identify and correct these mistakes, some errors may remain in the document. REJI CHANG JR, MD Feb 02, 2022 17:10
== END ==
LOC: CARD 10:52
PROVIDERS: ATTEND Internal Medicine Cardiovascular Disease
DX: R94.31 Abnormal electrocardiogram [ECG] [EKG] (principal)
CPT/HCPCS: 78452; 93017; A9502

== ENCOUNTER 2022-02-27 13:12 | Emergency (ER) | payer MEDICARE ==
[~2022-02-27 13:12] MED LIST changes: -REGADENOSON 0.4 MG/5 ML SYR (LEXISCAN) IV ONE
[2022-02-27 13:42] LABS: BASOPHILS % (AUTO) 0 % (0-10); EOSINOPHILS % (AUTO) 0 % (0-10); HEMATOCRIT 40 % (40-54); LYMPHOCYTES # (AUTO) 0.1 10^3/uL (1.0-4.0); LYMPHOCYTES % (AUTO) 1 % (12-44); MEAN CORPUSCULAR HEMOGLOBIN 31 pg (25-34); MEAN CORPUSCULAR HGB CONC 35 g/dL (32-36); MEAN CORPUSCULAR VOLUME 88 fL (80-99); MEAN PLATELET VOLUME 8.3 fL (9.0-12.2); MONOCYTES % (AUTO) 6 % (0-12); NEUTROPHILS # (AUTO) 15.6 10^3/uL (1.8-7.8); NEUTROPHILS % (AUTO) 93 % (42-75); PLATELET COUNT 413 10^3/uL (130-400); WHITE BLOOD COUNT 16.8 10^3/uL (4.3-11.0)
[2022-02-27 14:08] LABS: CREATININE SERUM 4.11 MG/DL (0.60-1.30)
[2022-02-27 14:09] LABS: ALBUMIN 3.9 GM/DL (3.2-4.5); BILIRUBIN,TOTAL 0.5 MG/DL (0.1-1.0); CALCIUM 10.1 MG/DL (8.5-10.1); TOTAL PROTEIN 8.6 GM/DL (6.4-8.2)
--- NOTE | 2022-02-27 14:13 | ED General ---
General Chief Complaint: General Problems/Pain Stated Complaint: SOB; GEN PAIN Nursing Triage Note: Patient has been brought to ER by EMS for a 'hospice evaluation'. Per the family they are wanting the patient to be placed on hospice and they came to ER for a diagnosis to be placed on hospice. The family reports that he cannot swallow, he cannot eat, he cannot get out of bed and they want help with hospice. Family reports that she has called Isela at [phone] and she has been talkinig with her about hospice - [facility]. Source of Information: Patient, Caregiver, EMS, Old Records Exam Limitations: Other (clinical condition prevents him from being able to answer questions. DPOA family member provides ROS and history for the patient) History of Present Illness Date Seen by Provider: Feb 27, 2022 Time Seen by Provider: 13:12 Initial Comments 71-year-old male presenting by EMS from home due to increased decline in the last 5 days. He has not eating or drinking anything. He is complaining of generalized pain. Family has been trying to get him on hospice but they are having difficulty getting a hold of PCP, Dr. Friedman, so they came to the emergency department to be evaluated. Family does not want any aggressive treatment and feel that he should be made comfortable and placed on hospice to help him pass away without being in pain or suffering. They were agreeable to having labs drawn but did not want IV or IVF. He has history of tongue and throat cancer that was treated with chemotherapy and radiation. Recent EGD showed possible radiation changes affecting his swallowing. Timing/Duration: 4-5 Days Severity: Severe Associated Systoms: No Nausea/Vomiting; Shortness of Air, Other (complains of generalized pain) Allergies and Home Medications Allergies Coded Allergies: No Known Drug Allergies (Unverified , 09/30/21) Patient Home Medication List Home Medication List Reviewed: Yes Clonidine HCl (Clonidine HCl) 0.1 Mg Tablet, 0.1 MG PO Q8H, (Reported) Entered as Reported by: KARLI TEJEDA on 01/23/22 1321 Cyanocobalamin/FA/Pyridoxine (B Complex-Folic Acid Tablet) 200 Mcg-500 Mcg-5 Mg Tablet, 1 EACH PO DAILY, (Reported) Entered as Reported by: KARLI TEJEDA on 01/23/22 1321 Losartan Potassium (Losartan Potassium) 25 Mg Tablet, 25 MG PO BID, (Reported) Entered as Reported by: KARLI TEJEDA on 01/23/22 132 Lysine (l-Lysine) 500 Mg Tablet, 500 MG PO DAILY, (Reported) Entered as Reported by: KARLI TEJEDA on 01/23/22 132 Metformin HCl (Metformin HCl) 500 Mg Tablet, 500 MG PO BID, (Reported) Entered as Reported by: KARLI TEJEDA on 01/23/22 132 Omeprazole (Omeprazole) 40 Mg Capsule.dr, 40 MG PO DAILY, (Reported) Entered as Reported by: KARLI TEJEDA on 01/23/22 132 Rosuvastatin Calcium (Rosuvastatin Calcium) 20 Mg Tablet, 20 MG PO WEEK, (Reported) Entered as Reported by: KARLI TEJEDA on 01/23/22 132 Review of Systems Review of Systems Constitutional: No fever; malaise, weakness EENTM: other (difficulty swallowing) Respiratory: short of breath Cardiovascular: No chest pain Gastrointestinal: dysphagia; No nausea, No vomiting Genitourinary: decreased output Musculoskeletal: see HPI (complains of generalized pain) Skin: No rash Psychiatric/Neurological: See HPI Past Pnrfcwt-Zijtev-Tcznts Hx Patient Social History Use of E-Cig and/or Vaping dev: Unable to obtain Substance use?: Unable to obtain Alcohol Use?: Unable to obtain Immunizations Up To Date Tetanus Booster (TDap): Unknown First/Initial COVID19 Vaccinat: YES Second COVID19 Vaccination Micah: YES Third COVID19 Vaccination Date: NO Seasonal Allergies Seasonal Allergies: No Past Medical History Surgery/Hospitalization HX: gallbladder, lymphnodeectomy, Tongue cancer treated with chemotherapy and radiation. Surgeries: Yes (THROAT/TOUNGE CANCER) Adenoidectomy, Gallbladder, Tonsillectomy Respiratory: No Cardiac: Yes Hypertension, Peripheral Vascular Neurological: No Reproductive Disorders: No Genitourinary: No Gastrointestinal: Yes Musculoskeletal: No Endocrine: Yes Hypothyroidsim, Diabetes, Non-Insulin dep HEENT: Yes Dysphagia Cancer: Yes (Throat/Tounge) Psychosocial: No Integumentary: No Blood Disorders: No Physical Exam Vital Signs Vital Signs - First Documented 02/27/22 14:02 Temp 36.0 Pulse 88 Resp 22 Pulse Ox 93 O2 Delivery Nasal Cannula O2 Flow Rate 2.00 Capillary Refill : Height, Weight, BMI Height: '" Weight: lbs. oz. kg; 18.64 BMI Method: General Appearance: Chronically ill, Thin HEENT: PERRL/EOMI; No Moist Mucous Membranes (dry mucous membranes) Respiratory: Chest Non Tender, No Accessory Muscle Use, No Respiratory Distress, Decreased Breath Sounds Cardiovascular: Regular Rate, Rhythm, Normal Peripheral Pulses Gastrointestinal: Normal Bowel Sounds, No Pulsatile Mass, Non Tender, Soft Rectal: Deferred Extremity: Normal Capillary Refill, No Pedal Edema Neurologic/Psychiatric: Alert Skin: Pallor Progress/Results/Core Measures Suspected Sepsis SIRS Temperature: Pulse: 88 Respiratory Rate: 22 Laboratory Tests 02/27/22 13:37: White Blood Count 16.8H Blood Pressure / Mean: Laboratory Tests 02/27/22 13:37: Creatinine 4.11H, Platelet Count 413H, Total Bilirubin 0.5 Results/Orders Lab Results Laboratory Tests Test 02/27/22 13:37 Range/Units White Blood Count 16.8 H 4.3-11.0 10^3/uL Red Blood Count 4.58 4.30-5.52 10^6/uL Hemoglobin 14.0 13.3-17.7 g/dL Hematocrit 40 40-54 % Mean Corpuscular Volume 88 80-99 fL Mean Corpuscular Hemoglobin 31 25-34 pg Mean Corpuscular Hemoglobin Concent 35 32-36 g/dL Red Cell Distribution Width 12.7 10.0-14.5 % Platelet Count 413 H 130-400 10^3/uL Mean Platelet Volume 8.3 L 9.0-12.2 fL Immature Granulocyte % (Auto) 1 % Neutrophils (%) (Auto) 93 H 42-75 % Lymphocytes (%) (Auto) 1 L 12-44 % Monocytes (%) (Auto) 6 0-12 % Eosinophils (%) (Auto) 0 0-10 % Basophils (%) (Auto) 0 0-10 % Neutrophils # (Auto) 15.6 H 1.8-7.8 10^3/uL Lymphocytes # (Auto) 0.1 L 1.0-4.0 10^3/uL Monocytes # (Auto) 1.0 0.0-1.0 10^3/uL Eosinophils # (Auto) 0.0 0.0-0.3 10^3/uL Basophils # (Auto) 0.0 0.0-0.1 10^3/uL Immature Granulocyte # (Auto) 0.1 0.0-0.1 10^3/uL Neutrophils % (Manual) 91 % Lymphocytes % (Manual) 0 % Monocytes % (Manual) 5 % Eosinophils % (Manual) 1 % Basophils % (Manual) 0 % Band Neutrophils 3 % Sodium Level 133 L 135-145 MMOL/L Potassium Level 5.0 3.6-5.0 MMOL/L Chloride Level 83 L 98-107 MMOL/L Carbon Dioxide Level 27 21-32 MMOL/L Anion Gap 23 H 5-14 MMOL/L Blood Urea Nitrogen 165 *H 7-18 MG/DL Creatinine 4.11 H 0.60-1.30 MG/DL Estimat Glomerular Filtration Rate 15 BUN/Creatinine Ratio 40 Glucose Level 140 H 70-105 MG/DL Calcium Level 10.1 8.5-10.1 MG/DL Corrected Calcium 10.2 H 8.5-10.1 MG/DL Total Bilirubin 0.5 0.1-1.0 MG/DL Aspartate Amino Transf (AST/SGOT) 161 H 5-34 U/L Alanine Aminotransferase (ALT/SGPT) 506 H 0-55 U/L Alkaline Phosphatase 93 40-136 U/L Total Protein 8.6 H 6.4-8.2 GM/DL Albumin 3.9 3.2-4.5 GM/DL My Orders Orders - DIALLO VIDES MD O2 (02/27/22 13:23) Cbc With Automated Diff (02/27/22 13:23) Comprehensive Metabolic Panel (02/27/22 13:23) Manual Differential (02/27/22 13:37) Vital Signs/I&O 02/27/22 02/27/22 14:02 14:02 Temp 36.0 Pulse 88 Resp 22 B/P (MAP) Pulse Ox 93 O2 Delivery Nasal Cannula O2 Flow Rate 2.00 Capillary Refill : Progress Note #1: Progress Note After discussion with family member who is also the DPOA she wanted basic labs done but did not want the patient to have an IV or get IV fluids. She was okay with him having the oxygen if it was helping him be more comfortable. She would like to try and get him admitted to hospice care. Will contact hospice and see what they need to try and get him admitted for their care. Progress Note #2: Progress Note Labs came back showing elevated white blood cell count and multiple electrolyte abnormalities with acute renal failure and elevated liver enzymes. Oxygen saturation increased to 100% on 2 L by nasal cannula of supplemental oxygen. Labs were faxed to [facility] and they advised that they would admit him to the hospice care and have someone come out to see him tonight. They provide the number for family to call once patient was home so a intake nurse could come out to see the patient. Departure Impression Primary Impression: Dysphagia, unspecified Qualified Codes: R13.10 - Dysphagia, unspecified Additional Impressions: Radiation damage to digestive system Hypoxia H/O tongue cancer Acute renal failure Qualified Codes: N17.9 - Acute kidney failure, unspecified Dehydration Elevated liver function tests Disposition: HOME, SELF-CARE Condition: Stable Departure-Patient Inst. Decision time for Depature: 16:05 Referrals: JAMES FRIEDMAN MD (PCP) Primary Care Physician Patient Instructions: Acute Kidney Injury (DC), Dehydration, Adult ED, Palliative Care Add. Discharge Instructions: Call [facility] care at [phone] this afternoon and let them know he is home so they can come out to see him and admit him to Hospice. All discharge instructions reviewed with patient and/or family. Voiced understanding. DIALLO VIDES MD Feb 27, 2022 14:13
[2022-02-27 14:48] LABS: BAND NEUTROPHILS 3 %; BASOPHILS % (MANUAL) 0 %; EOSINOPHILS % (MANUAL) 1 %; LYMPHOCYTES % (MANUAL) 0 %; MONOCYTES % (MANUAL) 5 %; NEUTROPHILS % (MANUAL) 91 %
== END 2022-02-27 16:20 | disposition home or self-care (01) ==
LOC: EDUNIT# 13:12 → ER FS 13:14
DX: R13.10 Dysphagia, unspecified (principal); R09.02 Hypoxemia; N17.9 Acute kidney failure, unspecified; E86.0 Dehydration; R94.5 Abnormal results of liver function studies; D72.89 Other specified disorders of white blood cells; Z85.810 Personal history of malignant neoplasm of tongue
CPT/HCPCS: 36415; 80053; 85007; 85027